=== PATIENT | female | born 1965 | race Caucasian/White ===

== ENCOUNTER → 2016-11-20 | Outpatient (CLI) | payer OTHER, BC ==
[~2016-11-20] MED LIST: CEPH500C PO; CITA10TA8 PO; FAMO20TA9 PO; FEXO1TAB PO; LOSA50TA6 PO; PERM1CRE TOP
[2016-11-20 18:12] LABS: MAGNESIUM 2.3 mg/dl (1.8-2.4); THYROID STIMULATING HORMONE 0.994 uIu/ml (0.300-4.500)
[2016-11-24 14:37] LABS: ILGF1 Z SCORE FEMALE -0.1 SD (-2.0 - +2.0); INSULIN LIKE GROWTH FACTOR-I 132 ng/mL (50-317)
== END | disposition home or self-care (01) ==
LOC: C.LAB1850 16:58
PROVIDERS: ATTEND Internal Medicine Endocrinology, Diabetes & Metabolism
DX: R53.83 Other fatigue (principal)

== ENCOUNTER → 2016-11-28 | Outpatient (CLI) | payer OTHER, BC ==
--- NOTE | 2016-11-28 16:11 | DIAGNOSTIC IMAGING REPORT ---
THYROID ULTRASOUND HISTORY: R13.10 [id number] COMPARISON: None. FINDINGS: Right lobe: 4.3 x 2.2 x 1.4 cm. A few subcentimeter hypoechoic nodules/cysts with the largest measuring 4 mm. Left lobe: 4.5 x 2.7 x 1.8 cm. A few subcentimeter hypoechoic nodules/cysts with the largest measuring 7 mm. Isthmus: 4 mm in thickness. No nodules. IMPRESSION: A few scattered subcentimeter benign-appearing hypoechoic nodules/cysts. Otherwise, normal thyroid gland. Electronically signed by: Hardik García M.D. 11/28/2016 4:10 PM Dictated Date/Time: 11/28/2016 4:09 PM
== END | disposition home or self-care (01) ==
LOC: C.ULTR 15:35
PROVIDERS: ATTEND Internal Medicine Endocrinology, Diabetes & Metabolism
DX: R13.10 Dysphagia, unspecified (principal)

== ENCOUNTER → 2017-01-12 | Outpatient (CLI) | payer OTHER, BC | END | disposition home or self-care (01) | LOC: C.LABPBG 07:59 | PROVIDERS: ATTEND Internal Medicine Endocrinology, Diabetes & Metabolism | DX: R63.5 Abnormal weight gain (principal); R00.2 Palpitations ==

== ENCOUNTER → 2017-03-18 | Outpatient (CLI) | payer OTHER, BC | END | disposition home or self-care (01) | LOC: C.LABPBG 09:22 | PROVIDERS: ATTEND Internal Medicine Endocrinology, Diabetes & Metabolism | DX: E55.9 Vitamin D deficiency, unspecified (principal) ==